=== PATIENT | female | born 1965 | race Caucasian/White ===

== ENCOUNTER 2017-06-17 08:29 | Day surgery (SDC) | payer BC ==
[~2017-06-17] VITALS: Ht 162.6 cm; Wt 95.3 kg
[~2017-06-17 08:29] MED LIST: BUPIVACAINE-EPI 0.25%-1:200000 50 ML VIAL. ONE; ESTROGENS, CONJ VAGINAL CREAM 30GM TUBE. ONE; HYDROmorphone 2 MG/ML VIAL IV PRN; IV RINGERS,LACTATED 1000ML 1,000 ML IV SCH; LIDOCAINE 1% PF 2 ML VIAL. ID PRN; MORPHINE SULFATE 2 MG/ML DISP.SYRIN. IV PRN; MORPHINE SULFATE 4 MG/ML DISP.SYRIN. IV PRN; OMEP20CA9 PO; ONDANSETRON PF 4 MG/2 ML VIAL. IV PRN; PROCHLORPERAZINE 10 MG/2 ML VIAL. IV PRN; RIVA20TA2 PO; fentaNYL PF VIAL 100 MCG/2 ML VIAL IV PRN
[2017-06-17] MEDS ORDERED: ONDANSETRON PF 4 MG/2 ML VIAL. ONE (08:34)
[2017-06-17] MEDS ORDERED: LIDOCAINE 2% PF Vial for OR 5 ML VIAL. ONE (08:34)
[2017-06-17] MEDS ORDERED: MIDAZOLAM HCL/PF 2 MG/2 ML VIAL. ONE (08:34)
[2017-06-17] MEDS ORDERED: DEXAMETHASONE SOD PHOS 20 MG/5 ML VIAL. ONE (08:34)
[2017-06-17] MEDS ORDERED: fentaNYL PF VIAL 100 MCG/2 ML VIAL ONE ×2 (08:34→11:45)
[2017-06-17] MEDS ORDERED: PROPOFOL 20 ML IV ONE ×2 (08:34→10:51)
[2017-06-17] MEDS ORDERED: HEPARIN PF for SUB-Q USE 5,000 UNIT/0.5 ML VIAL. SQ ONE (09:15)
[2017-06-17 09:40] LABS: BASO % 1 % (0-3); EOS % 5 % (0-3); HEMATOCRIT 40.7 % (36.0-47.0); HEMOGLOBIN 13.3 g/dL (12.0-15.5); LYMPH # 0.6 x10^3/uL (1.0-4.8); LYMPH % 16 % (24-48); MEAN CORPUSCULAR HEMOGLOBIN 30 pg (25-35); MEAN CORPUSCULAR HGB CONC 33 g/dL (31-37); MEAN CORPUSCULAR VOLUME 92 fL (79-100); MONO % 10 % (0-9); NEUT % 68 % (31-73); PLATELET COUNT 182 x10^3/uL (140-400); RED BLOOD COUNT 4.43 x10^6/uL (3.50-5.40); RED CELL DISTRIBUTION WIDTH 14.8 % (11.5-14.5); WHITE BLOOD COUNT 3.6 x10^3/uL (4.0-11.0)
[2017-06-17] MEDS ORDERED: NALOXONE 0.4 MG/ML VIAL. IV PRN (09:45)
[2017-06-17] MEDS ORDERED: diphenhydrAMINE HCL 25 MG CAPSULE PO PRN (09:45)
[2017-06-17] MEDS ORDERED: CALCIUM CARBONATE 500 MG TAB.CHEW PO PRN (09:45)
[2017-06-17] MEDS ORDERED: MAG HYDROX/ALUMINUM HYD/SIMETH 30 ML ORAL.SUSP PO PRN (09:45)
[2017-06-17] MEDS ORDERED: diphenhydrAMINE 50 MG/ML VIAL IV PRN (09:45)
[2017-06-17] MEDS ORDERED: HYDROcodone/APAP 5/325MG 1 TAB TABLET PO PRN ×2 (09:45→12:45)
[2017-06-17] MEDS ORDERED: 0.9 % SODIUM CHLORIDE 10 ML DISP.SYRIN. IV PRN (09:45)
[2017-06-17] MEDS ORDERED: SIMETHICONE 80 MG TAB.CHEW PO PRN (09:45)
[2017-06-17 09:50] LABS: INR 1.1 (0.8-1.1); PROTHROMBIN TIME PATIENT 13.4 SEC (11.7-14.0)
[2017-06-17] MEDS ORDERED: ROCURONIUM 50 MG/5 ML VIAL. ONE (09:51)
[2017-06-17] MEDS ORDERED: SUCCINYLCHOLINE 200 MG/10 ML VIAL. ONE (09:51)
[2017-06-17] MEDS ORDERED: FAMOTIDINE 20 MG/2 ML VIAL ONE (10:22)
[2017-06-17] MEDS ORDERED: GLYCOPYRROLATE 1 MG/5 ML VIAL. ONE (10:30)
[2017-06-17] MEDS ORDERED: NEOSTIGMINE 10 MG/10 ML VIAL. ONE (10:30)
[2017-06-17] MEDS ORDERED: PHENYLEPHRINE in 0.9% NACL PF 1 MG/10 ML DISP.SYRIN. IV ONE (10:35)
[2017-06-17 11:04] LABS: NEG OBC UR NEG; POS OBC UR POS
[2017-06-17] MEDS ORDERED: DESFLURANE 61 TO 120 MINUTES IH ONE (11:21)
--- NOTE | 2017-06-17 12:05 | PDOC ---
BRIEF OPERATIVE NOTE Date: Jun 17, 2017 Pre-Op Diagnosis 2 cystocele and 3 degree rectocele Post-Op Diagnosis same Procedure Performed anterior and posterior repair with perineoplasty Surgeon Dr. Yuki Landry Anesthesia Type: General Blood Loss 75cc IV Fluid see anesthesia records Urine Output 150cc clear via burleson Specimens Obtained vaginal mucosa Findings 2 cystocele and 3 rectocele with shortened perineal body Complications none Operative Note [id number] YUKI LANDRY MD Jun 17, 2017 12:05
[2017-06-17] MEDS: fentaNYL PF VIAL 100 MCG/2 ML VIAL IV PRN ×2 (12:35→12:57)
--- NOTE | 2017-06-17 12:55 | OP ---
DATE OF SURGERY: 06/17/2017 PREOPERATIVE DIAGNOSES: Second degree cystocele, third-degree rectocele and a gaping perineal body shortening. POSTOPERATIVE DIAGNOSES: Second degree cystocele, third-degree rectocele and a gaping perineal body shortening. PROCEDURE: Anterior and posterior colporrhaphy with perineoplasty. SURGEON: López Landry M.D. GREASE REMOVER: OR personnel. ANESTHESIA: General. ESTIMATED BLOOD LOSS: 75 mL. URINE OUTPUT: 150 mL clear via Patten catheter. SPECIMEN: Just anterior and posterior vaginal mucosa that was trimmed. COMPLICATIONS: None. DESCRIPTION OF PROCEDURE: This patient was taken to the operating room where general anesthesia was placed. The patient was placed in dorsal lithotomy position in [facility]. The patient's vagina was prepped and draped in the normal sterile fashion and a Patten catheter was inserted under sterile technique. After performing a time-out and a weighted speculum was placed in the patient's vagina, single-tooth tenaculum was used to grasp the anterior lip of the cervix. A 20 mL of a dilute solution of 200 mL of injectable normal saline to 50 mL of 0.25% bupivacaine was injected in the anterior defect. A small scalpel was used to make a vertical incision above the cervix. Allis clamps were placed on these and the Metzenbaum scissors were used to open up the anterior vaginal mucosa delineating the defect below. Allis clamps were placed along the way. The Metzenbaum scissors were used sharply and then bluntly using a Ray-Elzbieta used to push down the defect from the anterior vaginal mucosa on both sides. Once it was greatly reduced, a series of four interrupted 2-0 Vicryl sutures were placed and tied reducing the defect. A very tiny amount of mucosa was trimmed from one side as this was a smaller defect and it was closed in an anterior to posterior, sew the apex towards the urethra down to the cervix in a running locked fashion. Excellent hemostasis was achieved and the defect was reduced well. At this point, the weighted speculum was removed and 60 more mL for a total of 80 mL of that dilute solution was placed in the posterior defect in the perineal body. The scalpel was used to make a madonna shaped wedge resection out of the opening and down on the perineal body and Ermelinda clamps were placed at 4 and 7 o'clock at the introitus. Once this was done, the Metzenbaum scissors were used to open up the posterior defect placing Allis along the way. This was a very long defect all the way up to the posterior fourchette and opening it up and then again using the Metzenbaum sharply and the Ray-Elzbieta bluntly to peel down and remove the posterior defect from the posterior vaginal mucosa. Once this was done, I believe 8 interrupted sutures of 2-0 Vicryl were used to reduce the defect. This was a much larger defect and a large amount of tissue on both sides were trimmed of posterior vaginal mucosa as well. Once this was done; they were tied and then tagged with a curved and straight Kellys. Needle was cut and passed off and tagged and then, they went back and tied from the deep posterior fourchette down to the introitus and in order reducing the defect with the blunt end of pickups pushing it down and pushing the Allis together approximating the fascia over the defect. Once this was done, the posterior vaginal mucosa was trimmed. It was closed in a running locked fashion as well to the introitus, taken down the perineal body was reapproximated with deep sutures and then, it was subcutaneous over the perineal body like an episiotomy and taken back and anchored and tied inside. I did put some FloSeal over the posterior vaginal mucosa for hemostasis and she is on blood thinners and nothing was obviously bleeding, but just oozy, so I did put some FloSeal over the posterior defect. Once this was done, everything was hemostatic. I looked at the anterior repair again which was good and the posterior repair was good as well. So at this point, the procedure was ended. The patient was awakened from anesthesia and taken to recovery room in stable condition. ÓLPEZ LANDRY MD DR: PATRIA/uvaldo JOB#: [id number] / [id number]
[2017-06-17 13:16] VITALS: BP 124/79
--- NOTE | 2017-06-19 09:04 | PATHOLOGY ---
PATHOLOGY REPORT * * * * * * * * FINAL DIAGNOSIS: Segments of vaginal mucosa, rectocele / cystocele repair: - Chronic inflammation, focal. (JPM:mmkimo; 06/18/2017) REPORT ELECTRONICALLY SIGNED BY: Mukesh Renteria M.D. DATE/TIME: 06/19/2017 09:03 * * * * * * * * GROSS PATHOLOGY: Received in formalin labeled "Meena Corcoran, vaginal mucosa" and consists of 4 strips of vaginal mucosa ranging in size from 2.0 x 0.5 x 0.3 cm to 5.4 x 1.2 x 0.5 cm. No mucosal lesions are identified. Soil Chemist sections are submitted as A1. (ALISON; 06/17/2017) INITIAL CPT CODE(S): A; 16062 Professional services performed [place] [address] Technical services performed by [facility] at [address] [place] [address], [facility] [address] [address]. SPECIMEN(S) RECEIVED: A.Vaginal mucosa CLINICAL HISTORY: Rectocele and cystocele PATIENT: MEENA CORCORAN /AGE: 1207/11/1965 (Age: 51) PATIENT #: [id number] ALT CASE #: SPECIMEN COLLECTION DATE: 06/17/2017 SPECIMEN RECEIVED DATE: 06/17/2017 [facility] - [address] [place] [address] - PHONE: [phone] * * * END OF REPORT * * *
== END 2017-06-17 13:53 | disposition home or self-care (01) ==
LOC: SURG 08:29
PROVIDERS: ATTEND Obstetrics & Gynecology
DX: N81.6 Rectocele (principal); N81.10 Cystocele, unspecified; N94.89 Other specified conditions associated with female genital organs and menstrual cycle; D64.9 Anemia, unspecified; E66.9 Obesity, unspecified; Z98.890 Other specified postprocedural states; Z86.718 Personal history of other venous thrombosis and embolism; Z79.01 Long term (current) use of anticoagulants
CPT/HCPCS: 36415; 57260; 81025; 85025; 85610; 85730; J0330; J0690; J1100; J2250; J2370; J2405; J2704; J2710; J3010; J3490; J7120; S0028; 88302; J2001